=== PATIENT | male | born 1955 | race Caucasian/White ===

== ENCOUNTER → 2018-08-07 | Outpatient (CLI) | payer OTHER ==
[~2018-08-07] MED LIST: ASPI-515 PO; FISH OIL PO; GLUC1TAB27 PO; MULT-516 PO
== END | disposition home or self-care (01) ==
LOC: STAR 08:39
PROVIDERS: ATTEND Surgery
DX: Z02.9 Encounter for administrative examinations, unspecified (principal)

== ENCOUNTER 2018-08-14 12:59 | Day surgery (SDC) | payer OTHER ==
[~2018-08-14] VITALS: Ht 193 cm; Wt 91.7 kg
[2018-08-14] MEDS ORDERED: BUPIVACAINE/PF 0.25% ONE (13:30)
[2018-08-14] MEDS ORDERED: EPINEPHRINE 1 MG/ML, 1ML ONE (13:30)
[2018-08-14] MEDS ORDERED: LACTATED RINGERS 1,000 ML IV SCH ×3 (13:37→18:30)
[2018-08-14 13:40] VITALS: BP 166/91
[2018-08-14] MEDS ORDERED: FENTANYL PF 250 MCG/5ML ONE ×2 (15:41)
[2018-08-14] MEDS ORDERED: MIDAZOLAM 1 MG/ML, 2ML ONE ×2 (15:41)
[2018-08-14] MEDS ORDERED: ROCURONIUM 10 MG/ML,10ML ONE (15:54)
[2018-08-14] MEDS ORDERED: CEFAZOLIN 1,000 MG ONE (15:54)
[2018-08-14] MEDS ORDERED: DEXAMETHASONE 4 MG/ML, 1ML ONE (15:54)
[2018-08-14] MEDS ORDERED: KETOROLAC 30 MG/1 ML ONE (15:54)
[2018-08-14] MEDS ORDERED: PROPOFOL 10 MG/ML, 20ML ONE (15:54)
[2018-08-14] MEDS ORDERED: EPHEDRINE 50 MG/ML, 1ML ONE (15:54)
[2018-08-14] MEDS ORDERED: OXYcodone 5 MG/5 ML ORAL.SOL UDC ONE (17:29)
[2018-08-14] MEDS ORDERED: FENTANYL PF 100 MCG/2ML IV PRN (18:00)
[2018-08-14] MEDS ORDERED: OXYcodone 5 MG/5 ML ORAL.SOL UDC PO PRN (18:00)
[2018-08-14] MEDS ORDERED: HYDROcodone/APAP 5/325 TABLET PO PRN (18:30)
[2018-08-14 19:53] VITALS: BP 128/84
== END 2018-08-14 21:00 | disposition home or self-care (01) ==
LOC: OUT 12:59 → 4NOR 18:05 → OUT 21:00
PROVIDERS: ATTEND Surgery
DX: K40.90 Unilateral inguinal hernia, without obstruction or gangrene, not specified as recurrent (principal); Z98.890 Other specified postprocedural states
CPT/HCPCS: 49505; C1781; J0171; J0690; J1100; J1885; J2250; J2704; J3010; J3490; J7120; G0378